=== PATIENT | female | born 1950 | race Caucasian/White ===

== ENCOUNTER 2022-03-09 10:00 | Outpatient (RCR) | payer MEDICARE, OTHER, SELFPAY ==
--- NOTE | 2022-03-03 12:39 | PT.OPEX ---
[facility] Eval Start: 03/02/22 15:31 Freq: Status: Active Protocol: Document 03/02/22 15:31 LIZA (Rec: 03/02/22 15:33 LIZA [id number]) E-signed By Madi Laura DPT, MS Physical Therapy Outpatient Evaluation Insurance Information Recert Due Date 05/31/22 Insurance Name Medicare B Medical Diagnosis Left hip greater trochanteric bursitis Treating Diagnosis L hip pain, L greater trochanteric edema, decreased L LE flexibility, imbalance and B LE and core weakness. Subjective Subjective Pt presents to PT with c/o L hip pain since January 2022 after being on her feet for hours at a family reunion. Sxs have improved after cortisone injection being able to walk with improved yas with a SPC. Describes sxs as sharp ache across the lateral hip extending along lateral and posterior thigh. Unable to sleep on L side due to pain. Pt hopes to return to horse riding and walking for exercise. PSH B TKA. AGGR factors: sleeping on L side, walking, standing, steps. ALLEV factors: movement, ice. Pain Comments 01/15 Current Work Status Retired Objective Functional Test Performed & Score LEFS: 12 Assessment Assessment/Impression Pt displays signs and symptoms consistent with L greater trochanteric bursitis with edema surrounding L greater trochanter. Limited activity levels and imbalance combined with L glute weakness and tightness contributing to continued sxs. She responded well to recumbent biking, stretching and strengthening exercises with decreased pain with amb following today?s session. She would benefit from continued skilled therapy to address these limitations. Primary Functional Limitations Sleeping on L side, walking, standing, steps Plan of Care Rehabilitation Potential Excellent Physical Therapy Goals Long-term goals to be completed in 10 weeks: 1. Pt will be independent and compliant with HEP 2. Pt will display improved B hip flex, ABD and ext strength of >/=4/5 to improve quality of gait 3. Pt will report improved quality of sleep waking <2x per night due to L hip pain. 4. Pt will be able to walk for >8 minutes with no elevation L hip pain to improve cardiovascular health. 5. Pt will report >75% improvement in LEFS questionnaire to significantly improve yas to daily activities. Coordination/Communication With Referral Source Treatment Plan/Direct Interventions Gait Training,Joint Mobilization,Manual Therapy, Neuromuscular Re-ed, Therapeutic Exercises Frequency/Duration 1x per week for 6-10 visits, decreasing frequency as able. Patient Will Be Discharged From Therapy Completion of LTG(s),Skills Plateau,Independent w/HEP, Independently Progressing Evaluation Billing Untimed Code Treatment Minutes 24 Complexity Moderate Certification Information Initial Certification Date 03/02/22 Ending Certification Date 05/31/22 Provider Signature Shows Agreement With POC & Medical Necessity Physician Comment/Change Comment or Changes Physician NPI Number #
== END 2022-10-31 13:49 | disposition home or self-care (01) ==
PROVIDERS: PCP Family Medicine; Visit Provider Physician Assistant Surgical
DX: M70.62 Trochanteric bursitis, left hip (principal); M25.552 Pain in left hip; Z51.89 Encounter for other specified aftercare
CPT/HCPCS: 97110; 97162

== ENCOUNTER 2023-09-22 11:32 | Emergency (ER) | payer MEDICARE, OTHER, SELFPAY ==
[2023-09-22 11:43] VITALS: BP 126/85; PULSE 107; RESP 18; TEMP 36.1; O2SAT 97; BMI 27.4
--- NOTE | 2023-09-22 12:36 | ED.SKABFB ---
HPI - Skin/Abscess/Foreign Bdy General Time Seen by Provider: 12:36 Date Seen: 09/22/23 Chief complaint: Skin/Abscess/Foreign Body Stated complaint: rash on back Time Seen by Provider: 09/22/23 12:27 Source: patient and RN notes reviewed Mode of arrival: ambulatory Limitations: no limitations History of Present Illness HPI narrative: This 72yo female is coming in with itching from a rash that she has had for a while now. It is on her legs and back. She has seen dermatology recently, doesn't remember what creams they gave her. She states that they were just small tubes, unclear if they actually helped or not. She doesn't have anymore though. Does not sound that there was a biopsy yet. Denies any cough, cold symptoms, no associated GI symptoms. This is been going on at least weeks. This makes it less likely to be some new food or allergic type reaction. She is question if this is a painful rash in she states no but then often times states the rash hurts when she is talking about it. I have stopped her multiple times in asked her if the rash is painful, she states no it actually just itchy. MD complaint: rash Related Data Home Medications Medication Instructions Recorded Confirmed acetaminophen 500 mg tablet 1,000 mg PO PRN 02/16/22 02/16/22 calcium carbonate 600 mg-vitamin 1 tab PO DAILY 02/16/22 02/16/22 D3 20 mcg (800 unit) tablet cholecalciferol (vitamin D3) 25 1,000 unit PO DAILY 02/16/22 02/16/22 mcg (1,000 unit) tablet diphenoxylate-atropine 2.5 2 tab PO PRN 02/16/22 mg-0.025 mg tablet levothyroxine 88 mcg tablet 88 mcg PO DAILY@07 02/16/22 02/16/22 Previous Rx's Medication Instructions Recorded clobetasol 0.05 % topical cream 1 applic topical BID #60 grams 09/22/23 Allergies Allergy/AdvReac Type Severity Reaction Status Date / Time No Known Drug Allergies Allergy Verified 02/16/22 14:21 Review of Systems Narrative: As per HPI. PFS PFS Medical History Arthritis Encounter for preoperative screening laboratory testing for severe acute respiratory syndrome coronavirus 2 (SARS-CoV-2) Skin cancer Surgical History History of left knee replacement Status post ORIF of fracture of ankle Status post right knee replacement Exam Const: Vital Signs, click to edit/add: Vital Signs - 24 hr 09/22/23 11:43 Temperature 97.0 F L Pulse Rate [Right Pulse Oximeter] 107 H Respiratory Rate 18 Blood Pressure [Ri ght Upper Arm] 126/85 Pulse Oximetry 97 Oxygen Delivery Me thod Room Air This 72-year-old female is alert, interactive, no apparent distress. There is no rash on her face, sclera clear, pupils are equal round, conjugate gaze. Neck is supple, no adenopathy, no thyromegaly masses or nodules. Lungs are clear, good air entry, no wheezing or crackles. CV regular rate rhythm, no murmur heard. She has a macular papular circular type rash which does coalesce in some areas on her back, increases as it goes down into her lumbar area. It is on her lower extremities and goes up to her thighs. More prominent on her lower legs. She states the lesions are nontender when I palpate. There are a couple lesions that do seem like they may have a tense vesicle but mostly it is maculopapular. They vary in size. Look almost to be a little bit more purplish discoloration rather than erythematous in her legs. Other areas are erythematous. Really has a nondescript appearance. Documenting provider has reviewed patient's vital signs: yes Course Course ED Course: Nursing staff was able to find that the patient was given clobetasol 0.05% topical cream and permethrin 5% topical cream. Given patient's current rash in symptoms, do not feel that this looks like scabies. I think she needs a biopsy. Will give her Claritin 10 mg orally here to see if it does help with the itching. Given she has a dermatology follow-up on Sunday, feel it is prudent to avoid oral steroids as biopsy should probably be done. Will give her some topical clobetasol again. She states she could not get any refills on the medications. Will not refill permethrin. Did review with the patient that she potentially is really taking a ?backwards, and ?step in the ER. She has already bend Dermatology. I think she is going to need to go back to Dermatology in actually get a biopsy of this rash. There is no mucosal involvement, no respiratory issues. This is been going on weeks. We can make recommendations to try to help with itching which is problematic for her. Vital Signs Vital signs: Initial Vital Signs Temperature 97.0 F L 09/22/23 11:43 Temperature Source Temporal Artery Scan 09/22/23 11:43 Pulse Rate 107 H 09/22/23 11:43 Respiratory Rate 18 09/22/23 11:43 Blood Pressure 126/85 09/22/23 11:43 Blood Pressure Mean 98 09/22/23 11:43 Blood Pressure Position Sitting 09/22/23 11:43 Pulse Oximetry 97 09/22/23 11:43 Oxygen Delivery Method Room Air 09/22/23 11:43 Vital Signs Temperature 97.0 F L 09/22/23 11:43 Pulse Rate 107 H 09/22/23 11:43 Respiratory Rate 18 09/22/23 11:43 Blood Pressure 126/85 09/22/23 11:43 Pulse Oximetry 97 09/22/23 11:43 Oxygen Delivery Method Room Air 09/22/23 11:43 Temperature 97.0 F L 09/22/23 11:43 Pulse Rate 107 H 09/22/23 11:43 Respiratory Rate 18 09/22/23 11:43 Blood Pressure 126/85 09/22/23 11:43 Pulse Oximetry 97 09/22/23 11:43 Oxygen Delivery Method Room Air 09/22/23 11:43 Discharge Plan Discharge Clinical Impression: Rash Patient Disposition: Home, Self-Care Condition: Stable Instructions: Acute Rash (ED), Cold Compress or Soak (ED) Additional Instructions: Try Claritin 10mg 1-2x/daily and see if that helps with the itching. Need to keep dermatology follow up Sunday that you have scheduled; do think biopsy may need to be considered, ultimately defer to firebrick layer on this. Can try some cold compresses to any specific area that might be itchy at a given time. I have given you refill of the steroid cream to try. Avoid hot showers or excessive heat, can make itching worse. Activity Level: Activity as Tolerated Prescriptions: New clobetasol 0.05 % cream 1 applic topical BID Qty: 60 0RF No Action acetaminophen 500 mg tablet 1,000 mg PO PRN levothyroxine 88 mcg tablet 88 mcg PO DAILY@07 diphenoxylate-atropine 2.5-0.025 mg tablet 2 tab PO PRN cholecalciferol (vitamin D3) 25 mcg (1,000 unit) tablet 1,000 unit PO DAILY calcium carbonate-vitamin D3 600 mg-20 mcg (800 unit) tablet 1 tab PO DAILY Follow Up/Referrals: Albina Mills MD [Primary Care Provider] - Stand Alone [facility] [place] Info Instructions
== END 2023-09-22 13:26 | disposition home or self-care (01) ==
PROVIDERS: Emergency Provider Family Medicine; PCP Family Medicine
DX: R21 Rash and other nonspecific skin eruption (principal)
CPT/HCPCS: 99282; 99283

== ENCOUNTER 2024-01-31 16:47 | Emergency (ER) | payer MEDICARE, OTHER, SELFPAY ==
[2024-01-31 16:52] VITALS: BP 148/110; PULSE 124; RESP 18; TEMP 36.2; O2SAT 95; BMI 26.5
--- NOTE | 2024-01-31 17:23 | CRLHL7_ITS ---
For Patients: As a result of the Century Cures Act, medical imaging exams and procedure reports are released immediately into your electronic medical record. You may view this report before your referring provider. If you have questions, please contact your health care provider. Indication: Axillary, upper arm pain and hematoma Technique: Targeted sonographic evaluation of the soft tissues of the right upper extremity in the area of the patient`s concern. Comparison: None. Findings/Impression : [id number] subcutaneous edema within the anterior right upper arm and proximal forearm. No discrete focal fluid collection identified to suggest hematoma or abscess. If there is persistent clinical concern, recommend CT Dictated by Jozef Lilly MD @ 01/31/2024 7:10:19 PM (Electronically Signed)
[2024-01-31 17:56] LABS: Basophils Percent Auto 0.1 % (0.0-3.0); Eosinophils Percent Auto 0.2 % (0.0-7.0); Hematocrit 37.6 % (33.0-51.0); Immature Granulocytes Pct Auto 7.4 %; Lymphocytes Percent Auto 5.6 % (20-44); Mean Corpuscular HGB Conc 32 gm/dL (32-36); Mean Corpuscular Hemoglobin 33 pg (26-34); Mean Corpuscular Volume 103 fL (80-100); Monocytes Percent Auto 5.9 % (0.0-11.0); Neutrophils Percent Auto 80.8 % (42.0-72.0); Platelet Count* 230 K/uL (140-440); RDW Coefficient of Variation % 16.3 % (11.5-15.5); Red Blood Count 3.67 m/uL (4.00-5.20); White Blood Count* 13.28 K/uL (4.50-11.00)
[2024-01-31 18:09] LABS: Slide Review Reflex No
[2024-01-31 18:10] LABS: Albumin* 4.1 g/dL (3.3-5.0); Chloride* 107 mmol/L (96-114)
[2024-01-31 18:11] LABS: Sodium* 136 mmol/L (135-149)
[2024-01-31 18:12] LABS: INR 0.91 (0.91-1.10); Prothrombin Time 12.8 Seconds
[2024-01-31 18:13] LABS: Anion Gap 6 mEq/L (7-15); Aspartate Amino Transferase* 23 U/L (12-35); Bilirubin Direct* 0.2 mg/dL (0.0-0.5); Bilirubin Total* 0.6 mg/dL (0.1-1.5); Blood Urea Nitrogen* 19 mg/dL (7-30); Carbon Dioxide* 23 mmol/L (20-32); Est. Creatinine Clearance* 39.63; Estimated Glomerular Filt Rate 59 ml/min
[2024-01-31 18:14] LABS: Alanine Aminotransferase* 19 U/L (4-35); Alkaline Phosphatase* 92 U/L (40-150); Calcium* 9.2 mg/dL (8.4-10.6); Glucose* 151 mg/dL (60-115)
--- NOTE | 2024-01-31 18:22 | ED.GENADULT ---
HPI - General Adult General Chief complaint: Extremity Pain/Injury, Upper Stated complaint: bruising on R arm Time Seen by Provider: 01/31/24 16:53 Source: patient Mode of arrival: ambulatory Limitations: no limitations History of Present Illness HPI narrative: 73-year-old female coming in today with pain and bruising of the right upper extremity. She states that she woke up and she had a small bruise there and in the last 24 hours the bruise has become quite large and painful. She denies trauma to the arm that she is aware of, however, she states that about a week ago when she was pulling the string to start her long more she felt a twinge of discomfort in that right shoulder. She states that she is not taking any blood thinners. She denies frequent bruising. She tells me that she has ?some kind of skin condition that causes blistering and scabs? she tells me that she is on multiple medications for her skin condition, however, she does not know what they are. According to her medical records from [facility], she does have a history of basal cell carcinoma. She also states that she recently saw the health policy nurse in they took off several lesions that in turn caused bruising. She denies bleeding from her gums, vaginal bleeding or bloody stools. She denies previous blood transfusion. Patient states that she lives by herself. She denies physical abuse. Related Data Home Medications ?Medication ?Instructions ?Recorded ?Confirmed acetaminophen 500 mg tablet 1,000 mg PO PRN 02/16/22 02/16/22 calcium carbonate 600 mg-vitamin 1 tab PO DAILY 02/16/22 01/31/24 D3 20 mcg (800 unit) tablet cholecalciferol (vitamin D3) 25 1,000 unit PO DAILY 02/16/22 02/16/22 mcg (1,000 unit) tablet levothyroxine 88 mcg tablet 88 mcg PO DAILY@02/16/22 01/31/24 Previous Rx's ?Medication ?Instructions ?Recorded clobetasol 0.05 % topical cream 1 applic topical BID #60 grams 09/22/23 Allergies Allergy/AdvReac Type Severity Reaction Status Date / Time No Known Drug Allergies Allergy Verified 01/31/24 16:51 Review of Systems Status of ROS: Reports: 10 or more systems reviewed and unremarkable except as noted in History and below [facility] Medical History Skin cancer ?C44.90 - Unspecified malignant neoplasm of skin, unspecified (ICD-10) Arthritis ?M19.90 - Unspecified osteoarthritis, unspecified site (ICD-10) Encounter for preoperative screening laboratory testing for severe acute respiratory syndrome coronavirus 2 (SARS-CoV-2) ?Z01.812 - Encounter for preprocedural laboratory examination (ICD-10) ?Z20.822 - Contact with and (suspected) exposure to covid-19 (ICD-10) Surgical History Status post ORIF of fracture of ankle ?Z98.890 - Other specified postprocedural states (ICD-10) ?Z87.81 - Personal history of (healed) traumatic fracture (ICD-10) History of left knee replacement ?Z96.652 - Presence of left artificial knee joint (ICD-10) Status post right knee replacement ?Z96.651 - Presence of right artificial knee joint (ICD-10) Exam Narrative: Exam Narrative: Well-nourished well-developed patient in no acute distress. Alert and oriented x3. Answers questions appropriately. Mood and affect are appropriate. Thoughts are goal oriented and rational. No tangential or magical thinking noted. Patient speaks in full sentences without needing to catch her breath. Patient is somewhat of a poor historian. HEENT: Normocephalic atraumatic. Pupils are equally round reactive to light. Extraocular muscles are intact. Conjunctivae are moist without any icterus noted, no conjunctival hemorrhages noted. Moist mucous membranes. Posterior pharynx is normal. Neck is soft. Cardiovascular: Heart is regular rate and rhythm S1 and S2 are present without any murmurs. Lungs: Clear to auscultation bilaterally no wheezes rhonchi or rales are appreciated. Patient takes deep breaths without any discomfort. Abdomen: Soft and nontender nondistended with normal bowel sounds. Extremities: Bilateral lower extremities are without edema. Patient has a very large and tender dark ecchymosis extending over the entire rebecca-medial upper arm, extending to the middle forearm. She has decreased range of motion , especially with of that shoulder and she has tenderness in the axillary region. She has full range of motion at the elbow and wrist. Hand front office director is strong and symmetric. Skin: Well perfused. Patient has scattered bruising of a upper extremities, lower extremities, back, chest wall and abdominal wall. Bruising appears to be in several different, but early stages, from a dark purple to electronic calibration technician bruises that are reddish brown. Const: Vital Signs, click to edit/add: Vital Signs - 24 hr 01/31/24 16:52 01/31/24 19:14 Temperature 97.2 F L Pulse Rate [Pulse Oximeter] 124 H 102 H Respiratory Rate 18 20 Blood Pressure [Le ft Upper Arm] 148/110 H 153/86 H Pulse Oximetry 95 96 Oxygen Delivery Me thod Room Air Room Air Course Course ED Course: A lab work was unremarkable. We did ultrasound the upper extremity and it shows mild to moderate subcutaneous edema but no discrete focal fluid collection. Given the time of the day, I am unable to do an MRI as I am concerned that she potentially ruptured part of her the rotator cuff causing pain and significant ecchymosis. We also discussed her diffuse bruising and patient states that again this is caused by a ?rash? that her health policy nurse is taking care of. Today, her platelet count and INR were normal. Vital Signs Vital signs: Initial Vital Signs Temperature 97.2 F L 01/31/24 16:52 Temperature Source Temporal Artery Scan 01/31/24 16:52 Pulse Rate 124 H 01/31/24 16:52 Respiratory Rate 18 01/31/24 16:52 Blood Pressure 148/110 H 01/31/24 16:52 Blood Pressure Mean 122 H 01/31/24 16:52 Blood Pressure Position Sitting 01/31/24 16:52 Pulse Oximetry 95 01/31/24 16:52 Oxygen Delivery Method Room Air 01/31/24 16:52 Vital Signs Temperature 97.2 F L 01/31/24 16:52 Pulse Rate 124 H 01/31/24 16:52 Respiratory Rate 18 01/31/24 16:52 Blood Pressure 148/110 H 01/31/24 16:52 Pulse Oximetry 95 01/31/24 16:52 Oxygen Delivery Method Room Air 01/31/24 16:52 Temperature 97.2 F L 01/31/24 16:52 Pulse Rate 102 H 01/31/24 19:14 Respiratory Rate 20 01/31/24 19:14 Blood Pressure 153/86 H 01/31/24 19:14 Pulse Oximetry 96 01/31/24 19:14 Oxygen Delivery Method Room Air 01/31/24 19:14 Medical Decision Making MDM Narrative Medical decision making narrative: 73-year-old female with shoulder pain and ecchymosis- recommend she follow up with primary care provider to discuss the need for shoulder MRI. Recommend follow-up for multiple bruises. Medical Records Medical records reviewed: Yes I reviewed the patient's medical records Lab Data Lab results reviewed: Yes I reviewed the patient's lab results Labs: Lab Results 01/31/24 Range/Units 17:40 WBC 13.28 H (4.50-11.00) K/uL RBC 3.67 L (4.00-5.20) m/uL Hgb 12.0 (12.0-16.0) gm/dL Hct 37.6 (33.0-51.0) % MCV 103 H (80-100) fL MCH 33 (26-34) pg MCHC 32 (32-36) gm/dL RDW Coeff of Omar 16.3 H (11.5-15.5) % Plt Count 230 (140-440) K/uL Neut % (Auto) 80.8 H (42.0-72.0) % Lymph % (Auto) 5.6 L (20-44) % Mcdonough % (Auto) 5.9 (0.0-11.0) % Eos % (Auto) 0.2 (0.0-7.0) % Baso % (Auto) 0.1 (0.0-3.0) % Neut # (Auto) 10.70 H (1.7-7.0) K/uL Lymph # (Auto) 0.70 L (0.90-2.90) K/uL Mcdonough # (Auto) 0.80 (0.00-0.90) K/UL Eos # (Auto) 0.00 (0.00-0.50) K/uL Baso # (Auto) 0.00 (0.00-0.30) K/uL Abs Immat Gran (auto) 1.00 H (0.00-0.30) K/uL Imm/Tot Granulo (auto) 7.4 % INR 0.91 (0.91-1.10) Sodium 136 (135-149) mmol/L Potassium 4.0 (3.6-5.1) mmol/L Chloride 107 (96-114) mmol/L Carbon Dioxide 23 (20-32) mmol/L Anion Gap 6 L (7-15) mEq/L BUN 19 (7-30) mg/dL Creatinine 1.0 (0.5-1.5) mg/dL Estimated Creat Clear 39.63 Estimated GFR 59 ml/min Glucose 151 H (60-115) mg/dL Calcium 9.2 (8.4-10.6) mg/dL Total Bilirubin 0.6 (0.1-1.5) mg/dL Direct Bilirubin 0.2 (0.0-0.5) mg/dL AST 23 (12-35) U/L ALT 19 (4-35) U/L Alkaline Phosphatase 92 (40-150) U/L Total Protein 7.0 (6.0-8.3) g/dL Albumin 4.1 (3.3-5.0) g/dL Imaging Data Extremity ultrasound: Attestation: I have reviewed the pertinent imaging results. Radiologist's impression: Study:?US-Extremity Upper extremity RT non vascular-01/31/2024 6:36:30 PM Ordering Physician:Antonio Rollins Final Report: Indication: Axillary, upper arm pain and hematoma Technique: Targeted sonographic evaluation of the soft tissues of the right upper extremity in the area of the patient`s concern. Comparison: None. Findings/Impression : [id number] subcutaneous edema within the anterior right upper arm and proximal forearm. No discrete focal fluid collection identified to suggest hematoma or abscess. If there is persistent clinical concern, recommend CT Discharge Plan Discharge Clinical Impression: Acute shoulder pain, Ecchymosis Patient Disposition: Home, Self-Care Condition: Stable Additional Instructions: Recommend you follow-up with your primary care provider this coming week to discuss the need for an MRI of your shoulder. There is also concerned about the amount of scattered bruising present, make sure you discussed this with your primary care provider as well. Prescriptions: No Action acetaminophen 500 mg tablet 1,000 mg PO PRN levothyroxine 88 mcg tablet 88 mcg PO DAILY@07 cholecalciferol (vitamin D3) 25 mcg (1,000 unit) tablet 1,000 unit PO DAILY calcium carbonate-vitamin D3 600 mg-20 mcg (800 unit) tablet 1 tab PO DAILY clobetasol 0.05 % cream 1 applic topical BID Qty: 60 0RF Follow Up/Referrals: Albina Mills MD [Primary Care Provider] - Stand Alone Forms: [facility] Info Instructions
[2024-01-31 19:14] VITALS: BP 153/86; PULSE 102; RESP 20; O2SAT 96
== END 2024-01-31 19:58 | disposition home or self-care (01) ==
PROVIDERS: Emergency Provider Family Medicine; PCP Family Medicine
DX: M25.511 Pain in right shoulder (principal); R23.3 Spontaneous ecchymoses
CPT/HCPCS: 36415; 76882; 80048; 80076; 85025; 85610; 99284

== ENCOUNTER 2024-02-02 08:38 | Emergency (ER) | payer MEDICARE, OTHER, SELFPAY ==
[2024-02-02 08:49] VITALS: BP 119/83; PULSE 134; RESP 18; TEMP 36.3; O2SAT 98; BMI 26.5
--- NOTE | 2024-02-02 09:01 | ED.GENADULT ---
HPI - General Adult General Chief complaint: Laceration/Wound Stated complaint: Bleed right arm Time Seen by Provider: 02/02/24 08:49 History of Present Illness HPI narrative: Pt bumped her right elbow on the edge of furniture two times, last night and this morning. Is complaining of her arm bleeding. Has bandage on her arm, bleeding appears to be under control at this time. Right arm is completely purple. Denies being on blood thinners. No pain. 73-year-old woman presenting to the emergency department with concern of bleeding from her right arm. Was seen yesterday following a knee injury to her arm. Is prone to extensive ecchymoses. Unclear diagnosis. Began bleeding this morning from the lower right arm. She is not feeling lightheaded or short of breath. No loss of sensation distally reported. Reviewing records note normal hemoglobin yesterday as well as prothrombin time. I do not see a prior partial thrombin time. History of what sounds like hemorrhagic blisters of some sort and does have regular care with dermatology. She is immunosuppressed with methotrexate. Related Data Home Medications ?Medication ?Instructions ?Recorded ?Confirmed acetaminophen 500 mg tablet 1,000 mg PO PRN 02/16/22 02/16/22 calcium carbonate 600 mg-vitamin 1 tab PO DAILY 02/16/22 02/02/24 D3 20 mcg (800 unit) tablet cholecalciferol (vitamin D3) 25 1,000 unit PO DAILY 02/16/22 02/02/24 mcg (1,000 unit) tablet levothyroxine 88 mcg tablet 88 mcg PO DAILY@02/16/22 02/02/24 hydroxyzine HCl 25 mg tablet 25 mg PO DAILY 02/02/24 02/02/24 methotrexate sodium 2.5 mg tablet 12.5 mg PO 02/02/24 prednisone 10 mg tablet PO 02/02/24 Previous Rx's ?Medication ?Instructions ?Recorded clobetasol 0.05 % topical cream 1 applic topical BID #60 grams 09/22/23 Allergies Allergy/AdvReac Type Severity Reaction Status Date / Time No Known Drug Allergies Allergy Verified 02/02/24 08:54 [facility] Medical History Skin cancer ?C44.90 - Unspecified malignant neoplasm of skin, unspecified (ICD-10) Arthritis ?M19.90 - Unspecified osteoarthritis, unspecified site (ICD-10) Encounter for preoperative screening laboratory testing for severe acute respiratory syndrome coronavirus 2 (SARS-CoV-2) ?Z01.812 - Encounter for preprocedural laboratory examination (ICD-10) ?Z20.822 - Contact with and (suspected) exposure to covid-19 (ICD-10) Surgical History Status post ORIF of fracture of ankle ?Z98.890 - Other specified postprocedural states (ICD-10) ?Z87.81 - Personal history of (healed) traumatic fracture (ICD-10) History of left knee replacement ?Z96.652 - Presence of left artificial knee joint (ICD-10) Status post right knee replacement ?Z96.651 - Presence of right artificial knee joint (ICD-10) Social History Smoking Status: Never smoker Do you use any of these nicotine containing products: None How often do you have a drink containing alcohol: never How often do you have six or more drinks on one occasion: Never AUDIT-C Alcohol total score: 0 Non-prescribed substance use: denies use Exam Narrative: Exam Narrative: Pleasant. Breathing easily. I think a little hard of hearing. Seems anxious. Skin is warm and with numerous locations of blotchy broad bruises. It is most notable is the right arm which is purple with bruise/hematoma starting in the upper right arm extending to the dorsum of the hand. Circumferential. There are some small skin tears or split in the skin from which are leaking a serosanguineous fluid. Arm is moderately tense, not tender. She is well-perfused with good pulses distally. Is moving her right shoulder now quite well today. Did not present with a arm sling. She is regularly tapping rubbing these oozing sites on the upper proximal forearm Const: Vital Signs, click to edit/add: Vital Signs - 24 hr 02/02/24 08:49 Temperature 97.4 F L Pulse Rate [Right Pulse Oximeter] 134 H Respiratory Rate 18 Blood Pressure [Le ft Upper Arm] 119/83 Pulse Oximetry 98 Oxygen Delivery Me thod Room Air Documenting provider has reviewed patient's vital signs: yes Course Vital Signs Vital signs: Initial Vital Signs Temperature 97.4 F L 02/02/24 08:49 Temperature Source Temporal Artery Scan 02/02/24 08:49 Pulse Rate 134 H 02/02/24 08:49 Pulse Rhythm Regular 02/02/24 08:49 Respiratory Rate 18 02/02/24 08:49 Blood Pressure 119/83 02/02/24 08:49 Blood Pressure Mean 95 02/02/24 08:49 Blood Pressure Position Sitting 02/02/24 08:49 Pulse Oximetry 98 02/02/24 08:49 Oxygen Delivery Method Room Air 02/02/24 08:49 Vital Signs Temperature 97.4 F L 02/02/24 08:49 Pulse Rate 134 H 02/02/24 08:49 Respiratory Rate 18 02/02/24 08:49 Blood Pressure 119/83 02/02/24 08:49 Pulse Oximetry 98 02/02/24 08:49 Oxygen Delivery Method Room Air 02/02/24 08:49 Temperature 97.4 F L 02/02/24 08:49 Pulse Rate 134 H 02/02/24 08:49 Respiratory Rate 18 02/02/24 08:49 Blood Pressure 119/83 02/02/24 08:49 Pulse Oximetry 98 02/02/24 08:49 Oxygen Delivery Method Room Air 02/02/24 08:49 Medical Decision Making MDM Narrative Medical decision making narrative: It looks as though there was some continued bleeding from her injury with distal a drift of the blood.. Has had extensive evaluation though it is unclear to me what diagnosis is for this condition. I do not think that there is specific vasculature to be addressed/cauterized or otherwise received surgical intervention at this time; impact looks to have been anterolateral in the upper arm. Is however leaking from a combination of pressure and thin skin/tears. Concerning also has history of some degree of immunosuppression. Needs compression and elevation. It sounds like has an MRI ready scheduled for this week for the shoulder. I returned to place antibiotic ointment, Vaseline gauze and Kerlix followed by Vj wrap compression beginning at the hand and extending up to the upper biceps. Not repeating labs yet today. Would like her to return to her arm sling and elevate when possible. Am providing with some antibiotic prophylaxis See patient discharge plan for further discussion Medical Records Medical records reviewed: Yes I reviewed the patient's medical records Discharge Plan Discharge Clinical Impression: Ecchymosis Patient Disposition: Home w/ Parent or Adult Condition: Stable Additional Instructions: Can change dressings daily. I would wear compression in the form of these Vj wraps most of the time over this next week. Consider wearing your arm sling and definitely elevate your arm generally when at rest to try to help with mobilization of this fluid. This may continue to ooze for couple of days yet. If soak through this current dressing, would re-dress. If soak through that, be seen again. If increasingly swollen, feeling short of breath or lightheaded, would be re-evaluated. It might be prudent to place you on antibiotics as prophylaxis. Cephalexin from [facility]. Prescriptions: No Action acetaminophen 500 mg tablet 1,000 mg PO PRN levothyroxine 88 mcg tablet 88 mcg PO DAILY@07 cholecalciferol (vitamin D3) 25 mcg (1,000 unit) tablet 1,000 unit PO DAILY calcium carbonate-vitamin D3 600 mg-20 mcg (800 unit) tablet 1 tab PO DAILY clobetasol 0.05 % cream 1 applic topical BID Qty: 60 0RF prednisone 10 mg tablet PO methotrexate sodium 2.5 mg tablet 12.5 mg PO hydroxyzine HCl 25 mg tablet 25 mg PO DAILY Follow Up/Referrals: Albina Mills MD [Primary Care Provider] - Stand Alone Forms: [employer] Info Instructions
== END 2024-02-02 09:43 | disposition home or self-care (01) ==
LOC: ED 09:40
PROVIDERS: Emergency Provider Family Medicine; PCP Family Medicine
DX: R23.3 Spontaneous ecchymoses (principal)
CPT/HCPCS: 99283; 99284

== ENCOUNTER 2024-03-06 05:40 | Emergency (ER) | payer MEDICARE, OTHER, SELFPAY ==
[2024-03-06] VITALS (10 sets, daily range): BP systolic 130–167; BP diastolic 64–82; PULSE 81–95; RESP 16–18; TEMP 36.6; O2SAT 93–97; BMI 28.7
--- NOTE | 2024-03-06 05:59 | CRLHL7_ITS ---
For Patients: As a result of the Century Cures Act, medical imaging exams and procedure reports are released immediately into your electronic medical record. You may view this report before your referring provider. If you have questions, please contact your health care provider. Indication: Fall. Technique: Two view(s) of the left knee. Comparison: None available. Findings: Anatomic alignment of the left knee prosthesis. Hardware is intact and without evidence of complication. No acute fracture is identified. There is a moderate knee joint effusion. Bones are diffusely demineralized. Soft tissues are unremarkable. Small amount of heterotopic ossification along the knee joint. Impression: No acute osseous abnormality identified. Moderate knee joint effusion. Dictated by Cookie Staples MD @ 03/06/2024 6:29:32 AM (Electronically Signed)
--- NOTE | 2024-03-06 06:08 | ED.GENADULT ---
HPI - General Adult General Chief complaint: Extremity Pain/Injury, Lower Stated complaint: Fall Time Seen by Provider: 03/06/24 05:49 History of Present Illness HPI narrative: Had left knee pain last evening. Woke up this morning at approx 0400 and fell, left knee swollen, painful. Could not get off floor. initially stated of pain 10 prior to 50 mcg fentanyl from EMS, now tolerable while lying still. 4mg zofran given by EMS prior to arrival. 73-year-old woman presenting to the emergency department with complaint of left knee pain and swelling. Yesterday evening due to discomfort had trouble standing on this left foot. Trying to her to the door of her mobile home to open it this morning then fell causing much more pain and more swelling of the knee. Evidently fell on both knees somewhat. No other injuries were sustained. Reflects that has been experiencing some swelling in this knee for an unspecified amount of time. Before the fall felt like things were shifting in the knee somehow. Much more swelling since this fall. Has not had any fevers. History of bilateral knee replacement. Denies history of gout. Related Data Home Medications ?Medication ?Instructions ?Recorded ?Confirmed acetaminophen 500 mg tablet 1,000 mg PO PRN 02/16/22 02/16/22 calcium carbonate 600 mg-vitamin 1 tab PO DAILY 02/16/22 03/06/24 D3 20 mcg (800 unit) tablet cholecalciferol (vitamin D3) 25 1,000 unit PO DAILY 02/16/22 03/06/24 mcg (1,000 unit) tablet hydroxyzine HCl 25 mg tablet 25 mg PO DAILY 02/02/24 03/06/24 methotrexate sodium 2.5 mg tablet 12.5 mg PO 02/02/24 alendronate 70 mg tablet 70 mg PO 03/06/24 cephalexin 500 mg capsule 500 mg PO QID 03/06/24 03/06/24 doxycycline monohydrate 100 mg 100 mg PO BID 03/06/24 03/06/24 capsule fluticasone propionate 50 intranasal 03/06/24 mcg/actuation nasal spray,suspension levothyroxine 100 mcg tablet 100 mcg PO DAILY 03/06/24 03/06/24 prednisone 2.5 mg tablet PO 03/06/24 triamcinolone acetonide 0.1 % 1 applic topical BID-TID 08/29/24 08/29/24 topical cream Previous Rx's ?Medication ?Instructions ?Recorded clobetasol 0.05 % topical cream 1 applic topical BID #60 grams 09/22/23 Allergies Allergy/AdvReac Type Severity Reaction Status Date / Time No Known Drug Allergies Allergy Verified 03/06/24 05:47 Review of Systems Status of ROS: Reports: 6 or more systems reviewed and unremarkable except as noted in History and below [facility] Medical History Skin cancer ?C44.90 - Unspecified malignant neoplasm of skin, unspecified (ICD-10) Arthritis ?M19.90 - Unspecified osteoarthritis, unspecified site (ICD-10) Encounter for preoperative screening laboratory testing for severe acute respiratory syndrome coronavirus 2 (SARS-CoV-2) ?Z01.812 - Encounter for preprocedural laboratory examination (ICD-10) ?Z20.822 - Contact with and (suspected) exposure to covid-19 (ICD-10) Surgical History Status post ORIF of fracture of ankle ?Z98.890 - Other specified postprocedural states (ICD-10) ?Z87.81 - Personal history of (healed) traumatic fracture (ICD-10) History of left knee replacement ?Z96.652 - Presence of left artificial knee joint (ICD-10) Status post right knee replacement ?Z96.651 - Presence of right artificial knee joint (ICD-10) Social History Smoking Status: Never smoker Do you use any of these nicotine containing products: None How often do you have a drink containing alcohol: never How often do you have six or more drinks on one occasion: Never AUDIT-C Alcohol total score: 0 Non-prescribed substance use: denies use Exam Narrative: Exam Narrative: Pleasant. Clearly uncomfortable. Has the light compression sleeve over her left knee. Various areas of intradermal bruising unrelated to the fall. Large effusion at the left knee. Warm. Do not appreciate significant erythema or induration of the skin. Any movement though of the knee causes a good deal of pain. I do not appreciate a defect above the patella. Tendon appears to be intact. Knee appears to be a properly aligned. Const: Vital Signs, click to edit/add: Vital Signs - 24 hr 03/06/24 05:45 03/06/24 05:48 03/06/24 05:49 Temperature 97.8 F Pulse Rate 87 92 Pulse Rate [Left P ulse Oximeter] 89 Respiratory Rate 18 Blood Pressure 145/82 H Blood Pressure [Ri ght Upper Arm] 145/82 H Pulse Oximetry 94 93 97 Oxygen Delivery Me thod Room Air 03/06/24 06:00 03/06/24 06:02 03/06/24 06:17 Temperature Pulse Rate 90 91 93 Pulse Rate [Left P ulse Oximeter] Respiratory Rate Blood Pressure 139/64 Blood Pressure [Ri ght Upper Arm] Pulse Oximetry 93 96 96 Oxygen Delivery Me thod 03/06/24 06:30 03/06/24 06:30 03/06/24 06:32 Temperature Pulse Rate 95 92 Pulse Rate [Left P ulse Oximeter] 81 Respiratory Rate 16 Blood Pressure 136/70 Blood Pressure [Ri ght Upper Arm] 130/72 Pulse Oximetry 95 94 97 Oxygen Delivery Me thod Room Air 03/06/24 07:02 03/06/24 07:31 Temperature Pulse Rate Pulse Rate [Left P ulse Oximeter] Respiratory Rate Blood Pressure 156/79 H 167/75 H Blood Pressure [Ri ght Upper Arm] Pulse Oximetry Oxygen Delivery Me thod Documenting provider has reviewed patient's vital signs: yes Course Vital Signs Vital signs: Initial Vital Signs Temperature 97.8 F 03/06/24 05:45 Temperature Source Temporal Artery Scan 03/06/24 05:45 Pulse Rate 89 03/06/24 05:45 Pulse Rhythm Regular 03/06/24 05:45 Respiratory Rate 18 03/06/24 05:45 Blood Pressure 145/82 H 03/06/24 05:45 Blood Pressure Mean 103 03/06/24 05:45 Blood Pressure Position Supine 03/06/24 05:45 Pulse Oximetry 94 03/06/24 05:45 Oxygen Delivery Method Room Air 03/06/24 05:45 Vital Signs Temperature 97.8 F 03/06/24 05:45 Pulse Rate 89 03/06/24 05:45 Respiratory Rate 18 03/06/24 05:45 Blood Pressure 145/82 H 03/06/24 05:45 Pulse Oximetry 94 03/06/24 05:45 Oxygen Delivery Method Room Air 03/06/24 05:45 Temperature 97.8 F 03/06/24 05:45 Pulse Rate 92 03/06/24 06:32 Respiratory Rate 16 03/06/24 06:30 Blood Pressure 167/75 H 03/06/24 07:31 Pulse Oximetry 97 03/06/24 06:32 Oxygen Delivery Method Room Air 03/06/24 06:30 Medications Administered Medications: Discontinued Medications Generic Name Dose Route Start Last Admin Trade Name Summer PRN Reason Stop Dose Admin Hydrocodone Bitart/Acetaminophen 2 tab 03/06/24 06:34 03/06/24 06:45 Hydrocodone-Acetamin 5-325 Mg 1 Tab PO 03/06/24 06:35 2 tab ONCE ONE Administration Medical Decision Making MDM Narrative Medical decision making narrative: I do not think this is an infected joint. Would certainly have concern about potential fracture. This is a postop knee though so potential destabilization of the hardware. May have been experiencing some osteoarthritic/rheumatoid flare prior to this fall. X-ray of the left knee reviewed by me shows effusion but hardware looks to be intact. Patella in place Over-read of radiology below Two view(s) of the left knee. Comparison: None available. Findings: Anatomic alignment of the left knee prosthesis. Hardware is intact and without evidence of complication. No acute fracture is identified. There is a moderate knee joint effusion. Bones are diffusely demineralized. Soft tissues are unremarkable. Small amount of heterotopic ossification along the knee joint. Impression: No acute osseous abnormality identified. Moderate knee joint effusion. Ordered for knee immobilizer. Given 2 tabs of [place] and reassess. Able to ambulate without significant difficulty with her walker. I feel more reassured that she can manage at home. Will attempt to contact Orthopedics for close follow-up. See patient discharge plan for further discussion Medical Records Medical records reviewed: Yes I reviewed the patient's medical records Discharge Plan Discharge Clinical Impression: Knee pain, Fall, Joint effusion Patient Disposition: Home w/ Parent or Adult Condition: Improved Additional Instructions: Consider icing your knee 2-3 times daily over the next few days. Wear the knee immobilizer for comfort. Temporarily and with little food can take up to 600 mg of ibuprofen 3 times daily. This can also be combined with up to 1000 mg of acetaminophen per dose. Am prescribing some [place] from [facility]. [place] can make you sleepy and potentially constipated. On the days that you might take [place] consider taking a dose of senna. Keep in mind that each tablet of [place] contains 325 mg of acetaminophen. We will be reaching out to Orthopedics yet to try to get you follow-up care soon. I would expect a call from them. Prescriptions: No Action acetaminophen 500 mg tablet 1,000 mg PO PRN cholecalciferol (vitamin D3) 25 mcg (1,000 unit) tablet 1,000 unit PO DAILY calcium carbonate-vitamin D3 600 mg-20 mcg (800 unit) tablet 1 tab PO DAILY clobetasol 0.05 % cream 1 applic topical BID Qty: 60 0RF methotrexate sodium 2.5 mg tablet 12.5 mg PO hydroxyzine HCl 25 mg tablet 25 mg PO DAILY alendronate 70 mg tablet 70 mg PO triamcinolone acetonide 0.1 % cream 1 applic topical BID-TID levothyroxine 100 mcg tablet 100 mcg PO DAILY doxycycline monohydrate 100 mg capsule 100 mg PO BID prednisone 2.5 mg tablet PO cephalexin 500 mg capsule 500 mg PO QID fluticasone propionate 50 mcg/actuation spray,suspension INTRANASAL Patient Comments: [NO ORIGINAL SIG] Follow Up/Referrals: Albina Mills MD [Primary Care Provider] - Stand Alone Forms: [employer] Info Instructions
[2024-03-06] MEDS: HYDROCODONE-ACETAMIN 5-325 MG 1 TAB 2 TAB PO (06:45)
--- NOTE | 2024-03-06 07:39 | ED.NURSE ---
pt ambulated with walker - tolerated walking well. Reported minimal pain
== END 2024-03-06 08:45 | disposition home or self-care (01) ==
PROVIDERS: Emergency Provider Family Medicine; PCP Family Medicine
DX: M25.462 Effusion, left knee (principal)
CPT/HCPCS: 73560; 99283; 99284; A9270